=== PATIENT | male | born 1995 | race Caucasian/White ===

== ENCOUNTER 2023-06-26 11:14 | Emergency (ER) | payer OTHER ==
[~2023-06-26] VITALS: Ht 182.8 cm; Wt 127.0 kg
[2023-06-26 12:07] LABS: BILIRUBIN Negative (Negative); BLOOD Negative (Negative); CLARITY Clear (Clear); COLOR Yellow (Yellow); GLUCOSE Negative (Negative); KETONE Trace (Negative); LEUKO ESTERASE Trace (Negative); NITRITE Negative (Negative); PH 5.5 (4.5-8.0); SPECIFIC GRAVITY 1.025 (1.001-1.030); UROBILINOGEN 0.2 E.U./dl (0.0-1.0)
[2023-06-26 12:36] LABS: BACTERIA 1+; CALCIUM OXALATE CRYSTALS 1+
[2023-06-26 12:37] LABS: EPITHELIAL CELLS 0-2
[2023-06-27 06:07] LABS: HEPATITIS B SURFACE AG Negative (Negative)
== END 2023-06-26 12:30 | disposition home or self-care (01) ==
LOC: ED 11:14
PROVIDERS: Nurse Practitioner Family
DX: S69.81XA Other specified injuries of right wrist, hand and finger(s), initial encounter (principal); W46.0XXA Contact with hypodermic needle, initial encounter; Y93.89 Activity, other specified; Y92.149 Unspecified place in prison as the place of occurrence of the external cause; Y99.0 Civilian activity done for income or pay; Z79.899 Other long term (current) drug therapy

== ENCOUNTER 2023-06-26 18:39 | Emergency (ER) | payer OTHER ==
[~2023-06-26] VITALS: Ht 182.8 cm; Wt 127.0 kg
== END 2023-06-26 20:10 | disposition home or self-care (01) ==
LOC: ED 18:39
PROVIDERS: Nurse Practitioner Family
DX: S69.82XA Other specified injuries of left wrist, hand and finger(s), initial encounter (principal); Z87.891 Personal history of nicotine dependence; W46.0XXA Contact with hypodermic needle, initial encounter; Y93.89 Activity, other specified; Y92.149 Unspecified place in prison as the place of occurrence of the external cause; Y99.0 Civilian activity done for income or pay